=== PATIENT | female | born 1980 | race American Indian/Alaskan Native ===

== ENCOUNTER 2017-02-21 10:36 | Emergency (ER) | payer BC ==
[2017-02-21 10:48] VITALS: RESP 18; TEMP 98.7; O2SAT 100; BMI 38.7
[2017-02-21] MEDS ORDERED: Sodium Chloride 0.9% 1,000 ML IV ONE (11:01)
--- NOTE | 2017-02-21 11:05 | C.PDOC ---
History Of Present Illness Patient is a 36 y/o female that presents to the ED for evaluation of constant left lower back pain for the past 8 days. Pain is described as a deep burning sensation. Pt reports being seen my PMD in the office today, and was told there was blood in the urine, and was sent to the ED for possible kidney stone. Pt states pain began to radiate to the right side this morning. Pt notes taking Flexeril and OTC Ibuprofen with no relief of symptoms. Pt reports 1 episode of vomiting 7 days ago and 2 episodes of vomiting yesterday. Otherwise, denies any dysuria, abdominal pain, nausea, fever, chills, or any other associated symptoms at this time. Denies any surgical history. Time Seen by Provider: 02/21/17 10:51 Chief Complaint (Nursing): Back Pain History Per: Patient History/Exam Limitations: no limitations Onset/Duration Of Symptoms: Days (8), Persistent Current Symptoms Are (Timing): Still Present Quality Of Discomfort: Burning, "Pain" Previous Symptoms: denies: Neck Pain, Prior Injury, Prior Surgery Associated Symptoms: None. denies: Incontinence, New Weakness, New Numbness Exacerbating Factor(s): Nothing Recent travel outside of the [place]: No Additional History Per: Patient Past Medical History Reviewed: Historical Data, Nursing Documentation, Vital Signs Vital Signs: Last Vital Signs Temp 98.7 F 02/21/17 10:43 Pulse 87 02/21/17 13:31 Resp 18 02/21/17 13:31 BP 131/74 02/21/17 13:31 Pulse Ox 100 02/21/17 14:10 - Medical History PMH: Back Problems, Bronchitis Family History: States: No Known Family Hx - Social History Hx Alcohol Use: No Hx Substance Use: No - Immunization History Hx Tetanus Toxoid Vaccination: No Hx Influenza Vaccination: No Hx Pneumococcal Vaccination: No Review Of Systems Except As Marked, All Systems Reviewed And Found Negative. Constitutional: Negative for: Fever, Chills, Sweats, Weakness, Malaise, Weight loss Gastrointestinal: Positive for: Vomiting. Negative for: Nausea, Abdominal Pain , Diarrhea, Constipation Genitourinary: Negative for: Dysuria, Frequency, Incontinence Musculoskeletal: Positive for: Back Pain Skin: Negative for: Rash Neurological: Negative for: Weakness, Numbness Physical Exam - Physical Exam Appears: Non-toxic, No Acute Distress Skin: Normal Color, Warm, Dry Head: Atraumatic, Normacephalic Neck: Normal ROM, Supple Cardiovascular: Rhythm Regular, No Murmur Respiratory: Normal Breath Sounds, No Decreased Breath Sounds, No Accessory Muscle Use, No Rales, No Rhonchi, No Wheezing Gastrointestinal/Abdominal: Soft, No Tenderness, No Distention, No Guarding, No Rebound Back: No Vertebral Tenderness, Paraspinal Tenderness (left lower throracic paraspinus muscle tenderness) Extremity: No Swelling Neurological/Psych: Oriented x3, Normal Motor, Normal Sensation, Other (no focal deficits) Gait: Steady ED Course And Treatment O2 Sat by Pulse Oximetry: 100 (on RA) Pulse Ox Interpretation: Normal Progress Note: Labs ordered and reviewed. Patient was given IV fluids, and Toradol in the ER. Medical Decision Making Medical Decision Making: disc results w the pt, plan for rx, f/u, rtr Abd & pelvis CT FINDINGS: LOWER THORAX: Unremarkable. LIVER: Unremarkable. No gross lesion or ductal dilatation. GALLBLADDER AND BILE DUCTS: Unremarkable. PANCREAS: Unremarkable. No gross lesion or ductal dilatation. SPLEEN: Unremarkable. ADRENALS: Unremarkable. No mass. KIDNEYS AND URETERS: Unremarkable. No hydronephrosis. No solid mass. VASCULATURE: Unremarkable. No aortic aneurysm. BOWEL: Unremarkable. No obstruction. No gross mural thickening. Constipation without fecal impaction or obstruction. APPENDIX: Unremarkable. Normal appendix. PERITONEUM: Unremarkable. No free fluid. No free air. LYMPH NODES: Unremarkable. No enlarged lymph nodes. BLADDER: Unremarkable. REPRODUCTIVE: Unremarkable. BONES: No acute fracture. OTHER FINDINGS: None. IMPRESSION: Negative study for calculus disease, hydronephrosis, hydroureter or urinary bladder abnormality. Additional benign and/or incidental findings described above. Disposition - Disposition Disposition: HOME/ ROUTINE Disposition Time: 14:08 Condition: STABLE Additional Instructions: Please follow up with your primary doctor in the next week. Return to the ER for any worsening symptoms or for any other concerns. Prescriptions: Lidocaine 5% [Lidoderm] 1 ea TD DAILY PRN #10 patch PRN Reason: back pain Naproxen [Naprosyn] 500 mg PO Q12H PRN #10 tablet PRN Reason: Pain, Moderate (4-7) Instructions: Back Pain (ED), Back Exercises (ED) Forms: General Discharge Instructions - Clinical Impression Clinical Impression: Back pain - Scribe Statement The provider has reviewed the documentation as recorded by the Lyndonibhector Burrell Provider Attestation: All medical record entries made by the Lyndonibhector were at my direction and personally dictated by me. I have reviewed the chart and agree that the record accurately reflects my personal performance of the history, physical exam, medical decision making, and the department course for this patient. I have also personally directed, reviewed, and agree with the discharge instructions and disposition.
[2017-02-21] MEDS ORDERED: Sodium Chloride 0.9% 1,000 ML ONE (11:11)
[2017-02-21 12:39] LABS: RBC URINE 5 /hpf (0-3); URINE BILIRUBIN NEGATIVE (NEGATIVE); URINE BLOOD 1+ (NEGATIVE); URINE COLOR Yellow (YELLOW); URINE GLUCOSE (UA) NORMAL (Normal); URINE KETONE NEGATIVE (NEGATIVE); URINE LEUKOCYTE ESTERASE NEG Leu/uL (Negative); URINE PROTEIN NEGATIVE (NEGATIVE); URINE UROBILINOGEN NORMAL mg/dL (0.2-1.0); WBC URINE 1 /hpf (0-5)
[2017-02-21 13:32] VITALS: PULSE 87
--- NOTE | 2017-02-21 14:01 | CT ---
PROCEDURE: CT Abdomen and Pelvis without intravenous contrast. By history, negative test (concurrent with this examination). HISTORY: r flank pain r/o ureteral stone COMPARISON: None. TECHNIQUE: Unenhanced study. Neither oral nor intravenous contrast administered. Radiation dose: Total exam DLP = 1096.77 mGy-cm. This CT exam was performed using one or more of the following dose reduction techniques: Automated exposure control, adjustment of the mA and/or kV according to patient size, and/or use of iterative reconstruction technique. FINDINGS: LOWER THORAX: Unremarkable. LIVER: Unremarkable. No gross lesion or ductal dilatation. GALLBLADDER AND BILE DUCTS: Unremarkable. PANCREAS: Unremarkable. No gross lesion or ductal dilatation. SPLEEN: Unremarkable. ADRENALS: Unremarkable. No mass. KIDNEYS AND URETERS: Unremarkable. No hydronephrosis. No solid mass. VASCULATURE: Unremarkable. No aortic aneurysm. BOWEL: Unremarkable. No obstruction. No gross mural thickening. Constipation without fecal impaction or obstruction. APPENDIX: Unremarkable. Normal appendix. PERITONEUM: Unremarkable. No free fluid. No free air. LYMPH NODES: Unremarkable. No enlarged lymph nodes. BLADDER: Unremarkable. REPRODUCTIVE: Unremarkable. BONES: No acute fracture. OTHER FINDINGS: None. IMPRESSION: Negative study for calculus disease, hydronephrosis, hydroureter or urinary bladder abnormality. Additional benign and/or incidental findings described above.
[2017-02-21 14:23] VITALS: BP 139/79
== END 2017-02-21 14:23 | disposition home or self-care (01) ==
LOC: C.ER 10:36
DX: M54.9 Dorsalgia, unspecified (principal)
CPT/HCPCS: 74176; 81001; 84703; 87086; 96374; 99285; J1885; J7040

== ENCOUNTER 2018-03-24 02:58 | Emergency (ER) | payer BC, OTHER ==
[2018-03-24 02:59] VITALS: BMI 38.7
[2018-03-24 03:08] VITALS: BP 122/80; PULSE 90; RESP 24; TEMP 98.1; O2SAT 100
[2018-03-24] MEDS ORDERED: Oxycodone/Acetaminophen 5/325 mg Tab PO STA (03:20)
--- NOTE | 2018-03-24 03:22 | C.PDOC ---
History Of Present Illness 37 year old female presents to the ER with a complaint of dental pain. Patient had a root canal done 6 days ago and temp crown placed yesterday. She states that when the novacaine wore off she began having pain, she took naproxen at 17: 00 with no improvement. Patient has a prescription for antibiotics which she will be starting tomorrow. Denies fever, difficulty breathing, or difficulty swallowing. Time Seen by Provider: 03/24/18 03:06 Chief Complaint (Nursing): Dental Pain History Per: Patient History/Exam Limitations: no limitations Onset/Duration Of Symptoms: Hrs Current Symptoms Are (Timing): Still Present Recent travel outside of the [place] States: No Past Medical History Reviewed: Historical Data, Nursing Documentation, Vital Signs Vital Signs: Last Vital Signs Temp 98.1 F 03/24/18 03:03 Pulse 90 03/24/18 03:03 Resp 24 03/24/18 03:03 BP 122/80 03/24/18 03:03 Pulse Ox 100 03/24/18 03:36 - Medical History PMH: Back Problems, Bronchitis Family History: States: Unknown Family Hx - Social History Hx Alcohol Use: No Hx Substance Use: No - Immunization History Hx Tetanus Toxoid Vaccination: No Hx Influenza Vaccination: No Hx Pneumococcal Vaccination: No Review Of Systems Constitutional: Negative for: Fever, Chills ENT: Positive for: Mouth Pain. Negative for: Throat Swelling Respiratory: Negative for: Shortness of Breath, Wheezing Physical Exam - Physical Exam Appears: Well, Non-toxic, No Acute Distress Skin: Normal Color, Warm, Dry Head: Atraumatic, Normacephalic Eye(s): bilateral: Normal Inspection, EOMI Nose: Normal Oral Mucosa: Moist Tongue: Normal Appearing, No Swelling Lips: Normal Appearing, No Swelling Teeth: Other (Diffuse tenderness to left maxillary premolar) Gingiva: Normal Appearing, No Swelling Throat: Normal, No Erythema Neck: Normal, Normal ROM, Supple Chest: Symmetrical Cardiovascular: Rhythm Regular Respiratory: Normal Breath Sounds, No Accessory Muscle Use Extremity: Normal ROM Neurological/Psych: Oriented x3, Normal Speech ED Course And Treatment O2 Sat by Pulse Oximetry: 100 (Room air) Pulse Ox Interpretation: Normal Progress Note: Percocet, toradol, and viscous lidocaine administered. On reevaluation, patient reports improvement of her dental pain, she is resting comfortably in no distress, afebrile, will discharge home with Rx and instructions to follow up with dentist tomorrow. Disposition - Disposition Disposition: HOME/ ROUTINE Disposition Time: 03:20 Condition: STABLE Additional Instructions: Follow up with the dentist tomorrow. Return to ER if symptoms persist or worsen. Prescriptions: traMADol [Ultram] 50 mg PO Q8 #10 tab Instructions: Dental Pain (DC) Forms: [employer] ([place]) - Clinical Impression Clinical Impression: Pain, dental - PA / APPLICATIONS SYSTEM ANALYST / Resident Statement MD/DO has reviewed & agrees with the documentation as recorded. - Scribe Statement The provider has reviewed the documentation as recorded by the Scribhector Jacob All medical record entries made by the Kristi were at my direction and personally dictated by me. I have reviewed the chart and agree that the record accurately reflects my personal performance of the history, physical exam, medical decision making, and the department course for this patient. I have also personally directed, reviewed, and agree with the discharge instructions and disposition.
[2018-03-24] MEDS ORDERED: Oxycodone/Acetaminophen 5/325 mg Tab ONE (03:41)
== END 2018-03-24 03:52 | disposition home or self-care (01) ==
LOC: C.ER 02:58
DX: K08.89 Other specified disorders of teeth and supporting structures (principal)
CPT/HCPCS: 96372; 99283; J1885